=== PATIENT | male | born 1950 | race Caucasian/White ===

== ENCOUNTER 2018-01-04 21:31 | Inpatient (IN) | payer MEDICARE, MEDICAID ==
[~2018-01-04] VITALS: Ht 182.9 cm; Wt 128.0 kg
[~2018-01-04 21:31] MED LIST: temazepam 15mg capsule PO PRN
[2018-01-04 22:08] LABS: BASOPHILS % (AUTO) 0.1 % (0-1); EOSINOPHILS # (AUTO) 0.2 X10'3 (0-0.9); EOSINOPHILS % (AUTO) 2.4 % (0-6); HEMATOCRIT 46.9 % (42.0-52.0); HEMOGLOBIN 15.6 g/dl (14.0-17.9); LYMPHOCYTES % (AUTO) 13.7 % (21-51); MEAN CORPUSCULAR HEMOGLOBIN 30.8 PG (27.0-31.0); MEAN CORPUSCULAR HGB CONC 33.2 % (33.0-36.5); MEAN CORPUSCULAR VOLUME 92.7 FL (78-98); MEAN PLATELET VOLUME 7.9 FL (7.4-10.4); MONOCYTES # (AUTO) 0.1 X10'3 (0-0.9); MONOCYTES % (AUTO) 1.9 % (2-12); NEUTROPHILS # (AUTO) 6.2 X10'3 (1.8-7.7); NEUTROPHILS % (AUTO) 81.9 % (42-75); PLATELET COUNT 212 X10'3 (140-440); RED BLOOD COUNT 5.06 X10'6 (4.70-6.10); RED CELL DISTRIBUTION WIDTH 16.5 % (11.5-14.5); WHITE BLOOD COUNT 7.6 X10'3 (4.5-11.0)
[2018-01-04 22:20] LABS: PARTIAL THROMBOPLASTIN TIME 28 SECONDS (22-32); PROTHROMBIN TIME 10.5 SECONDS (9.0-12.0)
[2018-01-04 22:25] LABS: ALANINE AMINOTRANSFERASE 24 U/L (12-78); ALBUMIN 2.9 G/DL (3.4-5.0); ALBUMIN/GLOBULIN RATIO 0.7 (1.1-1.5); ALKALINE PHOSPHATASE 77 IU/L (46-116); ANION GAP 6 (8-16); ASPARTATE AMINO TRANSFERASE 18 U/L (10-37); BILIRUBIN,TOTAL 0.4 MG/DL (0.1-1.0); BLOOD UREA NITROGEN 24 MG/DL (7-18); BUN/CREATININE RATIO 14.6 (5.4-32.0); CALCIUM 9.4 MG/DL (8.5-10.1); CHLORIDE 111 MMOL/L (99-107); CREATININE 1.64 MG/DL (0.60-1.10); GLUCOSE 130 MG/DL (70-104); POTASSIUM 4.8 MMOL/L (3.5-5.1); SODIUM 145 MMOL/L (135-145); TOTAL CARBON DIOXIDE 28.3 MMOL/L (24-32); TOTAL PROTEIN 7.2 G/DL (6.4-8.2); eGFR 42 ML/MIN
[2018-01-04] MEDS ORDERED: ipratropium/albuterol 3ml nebule NEB ONE (22:50)
[2018-01-04] MEDS ORDERED: albuterol 2.5 MG/3 ML nebule NEB ONE (22:50)
[2018-01-04] MEDS ORDERED: normal saline 1000ML IV soln IVB ONE (22:50)
[2018-01-04] MEDS ORDERED: LISI-600 PO (22:55)
[2018-01-04] MEDS ORDERED: diphenhydrAMINE 25mg capsule PO PRN (23:00)
[2018-01-04] MEDS ORDERED: morphine 2 MG/ML inj. syringe IV PRN (23:00)
[2018-01-04] MEDS ORDERED: acetaminophen 325mg tablet PO PRN (23:00)
[2018-01-04] MEDS ORDERED: magnesium hydroxide 30ml (MOM) UD suspension PO PRN (23:00)
[2018-01-04] MEDS ORDERED: bisacodyl 10mg suppository rectal RC PRN (23:00)
[2018-01-04] MEDS ORDERED: acetaminophen 650mg rectal suppository RC PRN (23:00)
[2018-01-04] MEDS ORDERED: diphenhydrAMINE 50 mg/ml inj IV PRN (23:00)
[2018-01-04] MEDS ORDERED: HYDROcodone/acetaminophen 5mg/325mg tablet PO PRN (23:00)
[2018-01-04] MEDS ORDERED: ondansetron/PF 4mg/2ml inj IV PRN (23:00)
[2018-01-04] MEDS ORDERED: mag hydrox/Alum hydrox/simeth 30ml oral suspension PO PRN (23:00)
[2018-01-04] MEDS ORDERED: metoclopramide 5 mg/ml inj IV PRN (23:00)
[2018-01-04] MEDS ORDERED: HYDROmorphone 1 mg/ml syringe IV PRN ×2 (23:00)
[2018-01-04] MEDS ORDERED: DIVA500T9 PO (23:08)
[2018-01-04] MEDS ORDERED: POLY17PO10 PO (23:08)
[2018-01-04] MEDS ORDERED: TORS20TA3 PO (23:08)
[2018-01-04] MEDS ORDERED: BACL20TA PO (23:08)
[2018-01-04] MEDS ORDERED: LORA0.5T PO (23:08)
[2018-01-04] MEDS ORDERED: CLOP75TA15 PO (23:08)
[2018-01-04] MEDS ORDERED: HYDR5POW PO (23:08)
[2018-01-04] MEDS ORDERED: ATR0.5NEB NEB (23:08)
[2018-01-04] MEDS ORDERED: NALO25TA PO (23:08)
[2018-01-04] MEDS ORDERED: LACT10SO PO (23:08)
[2018-01-04] MEDS ORDERED: ASPI-1265 PO (23:08)
[2018-01-04] MEDS ORDERED: FLO0.4C PO (23:08)
[2018-01-04] MEDS ORDERED: LEVO50TA PO (23:08)
[2018-01-04] MEDS ORDERED: DULO-31 PO (23:08)
[2018-01-04] MEDS ORDERED: CARV-50 PO (23:08)
[2018-01-04] MEDS ORDERED: BUPR1PAT TOP (23:08)
[2018-01-04] MEDS ORDERED: FLUO20CA39 PO (23:08)
[2018-01-04] MEDS ORDERED: PREG150C PO (23:08)
[2018-01-04] MEDS ORDERED: LEVA15HF4 INH (23:08)
[2018-01-04] MEDS ORDERED: IBUP-2264 PO (23:08)
[2018-01-04 23:20] LABS: HEMOGLOBIN A1C 5.2 % (4.5-6.2)
[2018-01-04 23:24] LABS: COLOR,URINE YELLOW (Yellow); GLUCOSE, URINE NEGATIVE (Neg); KETONES,URINE NEGATIVE (Neg); LEUKOCYTE ESTERASE ,URINE NEGATIVE (Neg); NITRITES, URINE NEGATIVE (Neg); OCCULT BLOOD,URINE MODERATE (Neg); PROTEIN,URINE >=300 mg/dl (Neg); UROBILINOGEN,URINE 0.2 E.U/dL (0.2-1.0)
[2018-01-04 23:30] LABS: UA COLLECTION TYPE CLN CATCH MIDSTREAM
[2018-01-04 23:31] LABS: MAGNESIUM 1.9 MG/DL (1.5-2.4); PHOSPHORUS 1.8 MG/DL (2.3-4.5)
[2018-01-04 23:32] LABS: BACTERIA,URINE FEW /HPF (Neg); CLARITY,URINE CLEAR (Clear); SQUAMOUS EPITHELIAL CELL,UR FEW /LPF (FEW); WBC,URINE NONE SEEN /HPF (0-4)
[2018-01-04] MEDS: nitroGLYCERIN 1gm ointment UD TP ONE ×2 (23:41→23:47)
[2018-01-04] MEDS: levoFLOXACIN-Levaquin 500mg/D5 100 ML IV SCH (23:41)
[2018-01-04] MEDS: hydrALAZINE 20mg/ml inj. IV PRN (23:57)
[2018-01-05] VITALS (16 sets, daily range): BP systolic 145–200; BP diastolic 51–112
[2018-01-05 00:11] LABS: VALPROATE 45 UG/ML (50-100)
[2018-01-05] MEDS: heparin, porcine 5000 units/ml vial SQ SCH ×4 (00:57→23:43)
[2018-01-05] MEDS ORDERED: nitroGLYCERIN-Tridil 50MG/D5W 250 ML IV SCH (02:00)
[2018-01-05] MEDS: ipratropium 0.5 MG/2.5ML nebule IH SCH ×4 (02:11→20:08)
[2018-01-05] MEDS ORDERED: sodium phosphate inj. 15 MMOL in dextrose 5%-water 150 ML IV PRN (03:50)
[2018-01-05] MEDS ORDERED: sodium phosphate inj. 30 MMOL in dextrose 5%-water 250 ML IV PRN (03:50)
[2018-01-05] MEDS ORDERED: Neutra Phos packet PO PRN (03:50)
[2018-01-05 06:11] LABS: BASOPHILS % (AUTO) 0.2 % (0-1); EOSINOPHILS % (AUTO) 0 % (0-6); HEMATOCRIT 45.2 % (42.0-52.0); HEMOGLOBIN 15.1 g/dl (14.0-17.9); LYMPHOCYTES % (AUTO) 13.4 % (21-51); MEAN CORPUSCULAR HEMOGLOBIN 31.1 PG (27.0-31.0); MEAN CORPUSCULAR HGB CONC 33.4 % (33.0-36.5); MEAN CORPUSCULAR VOLUME 93.3 FL (78-98); MEAN PLATELET VOLUME 8.3 FL (7.4-10.4); MONOCYTES # (AUTO) 0.2 X10'3 (0-0.9); MONOCYTES % (AUTO) 2.1 % (2-12); NEUTROPHILS # (AUTO) 6.6 X10'3 (1.8-7.7); NEUTROPHILS % (AUTO) 84.3 % (42-75); PLATELET COUNT 187 X10'3 (140-440); RED BLOOD COUNT 4.84 X10'6 (4.70-6.10); RED CELL DISTRIBUTION WIDTH 16.4 % (11.5-14.5); WHITE BLOOD COUNT 7.8 X10'3 (4.5-11.0)
[2018-01-05 06:23] LABS: ALANINE AMINOTRANSFERASE 22 U/L (12-78); ALBUMIN 2.6 G/DL (3.4-5.0); ALBUMIN/GLOBULIN RATIO 0.6 (1.1-1.5); ALKALINE PHOSPHATASE 69 IU/L (46-116); ANION GAP 7 (8-16); ASPARTATE AMINO TRANSFERASE 20 U/L (10-37); BILIRUBIN,TOTAL 0.3 MG/DL (0.1-1.0); BLOOD UREA NITROGEN 26 MG/DL (7-18); CALCIUM 9.2 MG/DL (8.5-10.1); CHLORIDE 110 MMOL/L (99-107); GLUCOSE 149 MG/DL (70-104); POTASSIUM 4.9 MMOL/L (3.5-5.1); SODIUM 143 MMOL/L (135-145); TOTAL CARBON DIOXIDE 25.7 MMOL/L (24-32); TOTAL PROTEIN 6.7 G/DL (6.4-8.2); eGFR 55 ML/MIN
[2018-01-05 06:26] LABS: CHOL/HDL RATIO 2.6 (0.00-4.99); CHOLESTEROL 105 MG/DL (0-200); HDL CHOLESTEROL 40 MG/DL (35-60); LDL CHOLESTEROL 55 MG/DL (50-100); TRIGLYCERIDES 86 MG/DL (20-135)
[2018-01-05] MEDS: furosemide 10 MG/1 ML 10ml inj IV SCH ×2 (07:20→20:25)
[2018-01-05] MEDS: hydrALAZINE 20mg/ml inj. IV PRN ×3 (07:21→18:24)
[2018-01-05] MEDS: docusate sod 100mg capsule PO SCH ×2 (07:22→20:24)
[2018-01-05] MEDS: methylPREDNISolone sod succ 125mg/2ml vial IV SCH ×2 (07:22→20:24)
[2018-01-05] MEDS ORDERED: BUPRENORPHINE TP SCH (11:50)
[2018-01-05] MEDS ORDERED: HYDRALAZINE HCL PO SCH (13:00)
[2018-01-05] MEDS: pregabalin 75mg capsule PO SCH ×2 (13:00→20:24)
[2018-01-05] MEDS: divalproex sod 250mg ER (24-hour) tablet PO SCH (14:33)
[2018-01-05] MEDS: CefTRIAXone/D5W-Rocephin 1gm 50 ML IV SCH (17:46)
[2018-01-05] MEDS: morphine 2 MG/ML inj. syringe IV PRN ×2 (18:19→22:43)
[2018-01-05] MEDS: lactulose 20gm/30ml cup PO SCH (20:24)
[2018-01-05] MEDS: carVEDilol 12.5mg tablet PO SCH (20:24)
[2018-01-05] MEDS: LORazepam 0.5 MG tablet PO SCH (20:24)
[2018-01-05] MEDS: levoFLOXACIN-Levaquin 500mg/D5 100 ML IV SCH (22:43)
[2018-01-06 03:00] VITALS: BP 157/84
[2018-01-06] MEDS: ipratropium 0.5 MG/2.5ML nebule IH SCH ×2 (03:31→09:39)
[2018-01-06 05:33] LABS: BASOPHILS % (AUTO) 0 % (0-1); EOSINOPHILS % (AUTO) 0.3 % (0-6); HEMATOCRIT 48.1 % (42.0-52.0); HEMOGLOBIN 15.9 g/dl (14.0-17.9); LYMPHOCYTES # (AUTO) 1.2 X10'3 (1.1-4.8); LYMPHOCYTES % (AUTO) 8.1 % (21-51); MEAN CORPUSCULAR HGB CONC 33.1 % (33.0-36.5); MEAN CORPUSCULAR VOLUME 93.6 FL (78-98); MEAN PLATELET VOLUME 8.8 FL (7.4-10.4); MONOCYTES # (AUTO) 0.5 X10'3 (0-0.9); MONOCYTES % (AUTO) 3.5 % (2-12); NEUTROPHILS # (AUTO) 12.6 X10'3 (1.8-7.7); NEUTROPHILS % (AUTO) 88.1 % (42-75); PLATELET COUNT 219 X10'3 (140-440); RED BLOOD COUNT 5.14 X10'6 (4.70-6.10); RED CELL DISTRIBUTION WIDTH 16.6 % (11.5-14.5); WHITE BLOOD COUNT 14.4 X10'3 (4.5-11.0)
[2018-01-06 06:00] VITALS: BP 177/83
[2018-01-06 06:19] LABS: ALANINE AMINOTRANSFERASE 18 U/L (12-78); ALBUMIN 2.7 G/DL (3.4-5.0); ALBUMIN/GLOBULIN RATIO 0.6 (1.1-1.5); ALKALINE PHOSPHATASE 72 IU/L (46-116); ANION GAP 12 (8-16); ASPARTATE AMINO TRANSFERASE 16 U/L (10-37); BILIRUBIN,TOTAL 0.3 MG/DL (0.1-1.0); BLOOD UREA NITROGEN 29 MG/DL (7-18); BUN/CREATININE RATIO 18.5 (5.4-32.0); CALCIUM 9.7 MG/DL (8.5-10.1); CHLORIDE 104 MMOL/L (99-107); CREATININE 1.57 MG/DL (0.60-1.10); GLUCOSE 222 MG/DL (70-104); POTASSIUM 4.1 MMOL/L (3.5-5.1); SODIUM 142 MMOL/L (135-145); eGFR 44 ML/MIN
[2018-01-06] MEDS: NALOXEGOL PO SCH (07:24)
[2018-01-06] MEDS: divalproex sod 250mg ER (24-hour) tablet PO SCH (07:25)
[2018-01-06] MEDS: furosemide 10 MG/1 ML 10ml inj IV SCH (07:26)
[2018-01-06] MEDS: methylPREDNISolone sod succ 125mg/2ml vial IV SCH (07:26)
[2018-01-06] MEDS: CefTRIAXone/D5W-Rocephin 1gm 50 ML IV SCH (07:26)
[2018-01-06] MEDS: docusate sod 100mg capsule PO SCH ×2 (07:27→19:57)
[2018-01-06] MEDS: heparin, porcine 5000 units/ml vial SQ SCH ×3 (07:27→23:28)
[2018-01-06] MEDS: carVEDilol 12.5mg tablet PO SCH ×2 (07:27→19:57)
[2018-01-06] MEDS: lactulose 20gm/30ml cup PO SCH ×2 (07:27→19:57)
[2018-01-06] MEDS: duloxetine 30mg CAPSULE.DR PO SCH (07:28)
[2018-01-06] MEDS: aspirin 81mg tab.chew PO SCH (07:28)
[2018-01-06] MEDS: FLUoxetine 20mg capsule PO SCH (07:28)
[2018-01-06] MEDS: levoTHYROXINE 25mcg tablet PO SCH (07:28)
[2018-01-06] MEDS: clopidogrel 75mg tablet PO SCH (07:29)
[2018-01-06] MEDS: LORazepam 0.5 MG tablet PO SCH ×2 (07:29→19:57)
[2018-01-06] MEDS: tamsulosin 0.4mg capsule PO SCH (07:29)
[2018-01-06] MEDS: pregabalin 75mg capsule PO SCH ×3 (07:29→20:57)
[2018-01-06] MEDS ORDERED: non-formulary drug (Torsemide 1 TAB) PO SCH (08:00)
[2018-01-06] MEDS: hydrALAZINE 20mg/ml inj. IV PRN (09:39)
[2018-01-06 11:00] VITALS: BP 169/92
[2018-01-06] MEDS: HYDROcodone/acetaminophen 10/325mg tab PO PRN (11:02)
[2018-01-06] MEDS ORDERED: ipratropium 0.5 MG/2.5ML nebule IH PRN (11:55)
[2018-01-06 15:00] VITALS: BP 137/95
[2018-01-06 19:00] VITALS: BP 180/80
[2018-01-06] MEDS: lactobacillus rhamnosus 10,000 MMU CELLS/CAPSULE PO SCH (19:57)
[2018-01-06] MEDS: furosemide 40mg tablet PO SCH (19:57)
[2018-01-06 23:00] VITALS: BP 157/68
[2018-01-06] MEDS: levoFLOXACIN-Levaquin 500mg/D5 100 ML IV SCH (23:27)
[2018-01-06] MEDS: morphine 2 MG/ML inj. syringe IV PRN (23:28)
[2018-01-07] VITALS (7 sets, daily range): BP systolic 141–212; BP diastolic 68–94
[2018-01-07] MEDS: HYDROcodone/acetaminophen 10/325mg tab PO PRN ×3 (02:39→20:05)
[2018-01-07 05:40] LABS: BASOPHILS % (AUTO) 0.3 % (0-1); EOSINOPHILS % (AUTO) 0 % (0-6); HEMATOCRIT 49.5 % (42.0-52.0); HEMOGLOBIN 16.5 g/dl (14.0-17.9); LYMPHOCYTES # (AUTO) 1.1 X10'3 (1.1-4.8); LYMPHOCYTES % (AUTO) 8.4 % (21-51); MEAN CORPUSCULAR HEMOGLOBIN 31.1 PG (27.0-31.0); MEAN CORPUSCULAR HGB CONC 33.3 % (33.0-36.5); MEAN CORPUSCULAR VOLUME 93.5 FL (78-98); MEAN PLATELET VOLUME 8.6 FL (7.4-10.4); MONOCYTES # (AUTO) 0.6 X10'3 (0-0.9); MONOCYTES % (AUTO) 4.8 % (2-12); NEUTROPHILS # (AUTO) 11.1 X10'3 (1.8-7.7); NEUTROPHILS % (AUTO) 86.5 % (42-75); PLATELET COUNT 207 X10'3 (140-440); RED BLOOD COUNT 5.29 X10'6 (4.70-6.10); RED CELL DISTRIBUTION WIDTH 16.5 % (11.5-14.5); WHITE BLOOD COUNT 12.8 X10'3 (4.5-11.0)
[2018-01-07 05:57] LABS: ALANINE AMINOTRANSFERASE 38 U/L (12-78); ALBUMIN 2.6 G/DL (3.4-5.0); ALBUMIN/GLOBULIN RATIO 0.6 (1.1-1.5); ALKALINE PHOSPHATASE 74 IU/L (46-116); ANION GAP 8 (8-16); ASPARTATE AMINO TRANSFERASE 17 U/L (10-37); BILIRUBIN,TOTAL 0.3 MG/DL (0.1-1.0); BLOOD UREA NITROGEN 31 MG/DL (7-18); BUN/CREATININE RATIO 20.1 (5.4-32.0); CALCIUM 9.3 MG/DL (8.5-10.1); CHLORIDE 103 MMOL/L (99-107); CREATININE 1.54 MG/DL (0.60-1.10); GLUCOSE 179 MG/DL (70-104); POTASSIUM 3.7 MMOL/L (3.5-5.1); SODIUM 141 MMOL/L (135-145); TOTAL CARBON DIOXIDE 29.9 MMOL/L (24-32); TOTAL PROTEIN 6.8 G/DL (6.4-8.2); eGFR 45 ML/MIN
[2018-01-07] MEDS: FLUoxetine 20mg capsule PO SCH (07:22)
[2018-01-07] MEDS: pregabalin 75mg capsule PO SCH ×3 (07:22→20:06)
[2018-01-07] MEDS: docusate sod 100mg capsule PO SCH ×2 (07:23→20:04)
[2018-01-07] MEDS: duloxetine 30mg CAPSULE.DR PO SCH (07:23)
[2018-01-07] MEDS: divalproex sod 250mg ER (24-hour) tablet PO SCH (07:23)
[2018-01-07] MEDS: carVEDilol 12.5mg tablet PO SCH ×2 (07:23→20:04)
[2018-01-07] MEDS: LORazepam 0.5 MG tablet PO SCH ×2 (07:23→20:06)
[2018-01-07] MEDS: lactulose 20gm/30ml cup PO SCH ×2 (07:24→20:07)
[2018-01-07] MEDS: aspirin 81mg tab.chew PO SCH (07:24)
[2018-01-07] MEDS: clopidogrel 75mg tablet PO SCH (07:24)
[2018-01-07] MEDS: lactobacillus rhamnosus 10,000 MMU CELLS/CAPSULE PO SCH ×2 (07:24→20:04)
[2018-01-07] MEDS: levoTHYROXINE 25mcg tablet PO SCH (07:24)
[2018-01-07] MEDS: tamsulosin 0.4mg capsule PO SCH (07:24)
[2018-01-07] MEDS: furosemide 40mg tablet PO SCH (07:24)
[2018-01-07] MEDS: NALOXEGOL PO SCH (07:25)
[2018-01-07] MEDS: heparin, porcine 5000 units/ml vial SQ SCH ×2 (07:25→20:07)
[2018-01-07] MEDS: CefTRIAXone/D5W-Rocephin 1gm 50 ML IV SCH (07:25)
[2018-01-07] MEDS: hydrALAZINE 20mg/ml inj. IV PRN (15:50)
[2018-01-07] MEDS: hyDRALAzine 10mg tablet PO SCH (17:53)
[2018-01-07] MEDS: furosemide 20MG tablet PO SCH (20:18)
[2018-01-07] MEDS: levoFLOXACIN-Levaquin 500mg/D5 100 ML IV SCH (23:16)
[2018-01-08] MEDS: hyDRALAzine 10mg tablet PO SCH ×3 (00:18→16:25)
[2018-01-08] MEDS: HYDROcodone/acetaminophen 10/325mg tab PO PRN ×2 (00:19→19:17)
[2018-01-08 03:00] VITALS: BP 149/73
[2018-01-08 05:49] LABS: BASOPHILS % (AUTO) 0.2 % (0-1); EOSINOPHILS % (AUTO) 0.4 % (0-6); HEMOGLOBIN 16.3 g/dl (14.0-17.9); LYMPHOCYTES # (AUTO) 1.5 X10'3 (1.1-4.8); MEAN CORPUSCULAR HEMOGLOBIN 30.9 PG (27.0-31.0); MEAN CORPUSCULAR HGB CONC 33.1 % (33.0-36.5); MEAN CORPUSCULAR VOLUME 93.1 FL (78-98); MEAN PLATELET VOLUME 8.6 FL (7.4-10.4); MONOCYTES % (AUTO) 13.8 % (2-12); NEUTROPHILS # (AUTO) 4.5 X10'3 (1.8-7.7); NEUTROPHILS % (AUTO) 64.6 % (42-75); PLATELET COUNT 194 X10'3 (140-440); RED BLOOD COUNT 5.27 X10'6 (4.70-6.10); RED CELL DISTRIBUTION WIDTH 16.2 % (11.5-14.5)
[2018-01-08 06:00] VITALS: BP 156/92
[2018-01-08 06:24] LABS: ALANINE AMINOTRANSFERASE 41 U/L (12-78); ALBUMIN 2.4 G/DL (3.4-5.0); ALBUMIN/GLOBULIN RATIO 0.6 (1.1-1.5); ALKALINE PHOSPHATASE 59 IU/L (46-116); ANION GAP 7 (8-16); ASPARTATE AMINO TRANSFERASE 23 U/L (10-37); BILIRUBIN,TOTAL 0.3 MG/DL (0.1-1.0); BLOOD UREA NITROGEN 28 MG/DL (7-18); BUN/CREATININE RATIO 19.9 (5.4-32.0); CALCIUM 9.1 MG/DL (8.5-10.1); CHLORIDE 105 MMOL/L (99-107); CREATININE 1.41 MG/DL (0.60-1.10); GLUCOSE 91 MG/DL (70-104); POTASSIUM 4.1 MMOL/L (3.5-5.1); SODIUM 141 MMOL/L (135-145); TOTAL CARBON DIOXIDE 29.4 MMOL/L (24-32); TOTAL PROTEIN 6.1 G/DL (6.4-8.2); eGFR 50 ML/MIN
[2018-01-08 07:00] VITALS: BP 156/92
[2018-01-08] MEDS: lactulose 20gm/30ml cup PO SCH ×2 (07:20→19:19)
[2018-01-08] MEDS: heparin, porcine 5000 units/ml vial SQ SCH ×2 (07:21→19:19)
[2018-01-08] MEDS: NALOXEGOL PO SCH (07:21)
[2018-01-08] MEDS: levoTHYROXINE 25mcg tablet PO SCH (07:22)
[2018-01-08] MEDS: FLUoxetine 20mg capsule PO SCH (07:22)
[2018-01-08] MEDS: docusate sod 100mg capsule PO SCH ×2 (07:22→19:17)
[2018-01-08] MEDS: pregabalin 75mg capsule PO SCH ×2 (07:23→13:50)
[2018-01-08] MEDS: duloxetine 30mg CAPSULE.DR PO SCH (07:23)
[2018-01-08] MEDS: carVEDilol 12.5mg tablet PO SCH (07:23)
[2018-01-08] MEDS: divalproex sod 250mg ER (24-hour) tablet PO SCH (07:24)
[2018-01-08] MEDS: clopidogrel 75mg tablet PO SCH (07:25)
[2018-01-08] MEDS: lactobacillus rhamnosus 10,000 MMU CELLS/CAPSULE PO SCH ×2 (07:26→19:17)
[2018-01-08] MEDS: aspirin 81mg tab.chew PO SCH (07:26)
[2018-01-08] MEDS: furosemide 20MG tablet PO SCH ×2 (07:26→19:17)
[2018-01-08] MEDS: LORazepam 0.5 MG tablet PO SCH ×2 (07:26→19:18)
[2018-01-08] MEDS: tamsulosin 0.4mg capsule PO SCH (07:26)
[2018-01-08 11:00] VITALS: BP 161/64
[2018-01-08] MEDS ORDERED: LEVO500T89 PO (16:39)
[2018-01-08] MEDS ORDERED: HYDR-3972 PO (16:39)
[2018-01-08] MEDS ORDERED: lisinopril 20mg tablet PO SCH (16:40)
[2018-01-08 19:00] VITALS: BP 175/98
[2018-01-08] MEDS ORDERED: carVEDilol 12.5mg tablet PO SCH (20:00)
[2018-01-09] MEDS ORDERED: levoFLOXACIN 500mg tablet PO SCH (11:00)
== END 2018-01-08 20:30 | disposition home health service (06) | DRG 564 ==
LOC: ER 21:32 → ED HOLD 22:58 → PCU 3S 01-05 00:15
PROVIDERS: ADMIT Family Medicine; ATTEND Internal Medicine
PROC: 5A09357 Assistance with Respiratory Ventilation, Less than 24 Consecutive Hours, Continuous Positive Airway Pressure (ICD-10-PCS; principal; 2018-01-05)
PROC: CP2C1ZZ Tomographic (Tomo) Nuclear Medicine Imaging of Right Lower Extremity using Technetium 99m (Tc-99m) (ICD-10-PCS; 2018-01-08)
DX: T87.43 Infection of amputation stump, right lower extremity (principal); N17.0 Acute kidney failure with tubular necrosis; I50.31 Acute diastolic (congestive) heart failure; L03.115 Cellulitis of right lower limb; I16.1 Hypertensive emergency; I13.0 Hypertensive heart and chronic kidney disease with heart failure and stage 1 through stage 4 chronic kidney disease, or unspecified chronic kidney disease; J44.1 Chronic obstructive pulmonary disease with (acute) exacerbation; E03.9 Hypothyroidism, unspecified; G47.30 Sleep apnea, unspecified; F32.9 Major depressive disorder, single episode, unspecified; E83.39 Other disorders of phosphorus metabolism; G89.4 Chronic pain syndrome; F41.9 Anxiety disorder, unspecified; I25.10 Atherosclerotic heart disease of native coronary artery without angina pectoris; L97.519 Non-pressure chronic ulcer of other part of right foot with unspecified severity; N18.3 Chronic kidney disease, stage 3 (moderate); R09.02 Hypoxemia; Y83.5 Amputation of limb(s) as the cause of abnormal reaction of the patient, or of later complication, without mention of misadventure at the time of the procedure; Z95.1 Presence of aortocoronary bypass graft; Z91.19 Patient's noncompliance with other medical treatment and regimen; Z88.1 Allergy status to other antibiotic agents; Z88.2 Allergy status to sulfonamides; Z79.899 Other long term (current) drug therapy; Z79.82 Long term (current) use of aspirin; Z85.47 Personal history of malignant neoplasm of testis; Y92.89 Other specified places as the place of occurrence of the external cause
CPT/HCPCS: 36415; 71045; 73620; 78315; 80053; 80061; 80164; 81001; 83036; 83735; 83880; 84100; 84443; 84484; 85025; 85610; 85730; 87070; 93005; 93306; 93922; 93926; 94640; 94760; 97116; 97162; 97530; 99285; A4649; A6209; A6212; A6213; A6446; A6449; A9270; A9503; J0360; J0696; J1644; J1940; J1956; J2270; J2930; J3490; J7030; J7060